=== PATIENT | male | born 1950 | race Caucasian/White ===

== ENCOUNTER → 2018-06-23 08:00 | Outpatient (CLI) | payer MEDICARE, BC, SELFPAY | PROVIDERS: PCP Nurse Practitioner; Visit Provider Urology | DX: N48.6 Induration penis plastica (principal) | CPT/HCPCS: 99213 ==

== ENCOUNTER → 2018-11-21 11:02 | Outpatient (BNVA) | payer MEDICARE, BC, SELFPAY | PROVIDERS: PCP Nurse Practitioner; Visit Provider Urology | DX: N48.6 Induration penis plastica (principal); N52.9 Male erectile dysfunction, unspecified | CPT/HCPCS: 99213 ==

== ENCOUNTER 2018-11-24 08:39 | Outpatient (CLI) | payer MEDICARE, BC, SELFPAY ==
[2018-11-24 09:09] LABS: Abs Immature Grans 0.01 k/cumm (0.0-0.09); Absolute Basophil Count 0.02 k/cumm (0.0-0.2); Absolute Eosinophil Count 0.32 k/cumm (0.0-0.7); Absolute Lymphocyte Count 0.92 k/cumm (1.2-3.4); Absolute Monocyte Count 0.59 k/cumm (0.11-0.7); Absolute Neutrophil Count 4.21 k/cumm (1.2-6.7); Basophils % 0.3; Eosinophils % 5.3; HCT 39.2 % (40.0-50.0); HGB 13.2 g/dL (13.5-17.5); Immature Grans % 0.2; Lymphocytes % 15.2; Mean Corp. HGB Concentration 33.7 g/dL (32.0-36.0); Mean Corpuscular Hemoglobin 30.5 pg (27.0-33.0); Mean Corpuscular Volume 90.5 fL (80-95); Mean Platelet Volume 8.6 fL (8.0-11.0); Monocytes % 9.7; Neutrophils % 69.3; Platelet Count 188 x1000/uL (130-400); RBC 4.33 m/cumm (4.50-6.00); RBC Distribution Width 14.4 % (11.8-14.1); White Blood Cell Count 6.07 k/cumm (4.4-10.8)
[2018-11-24 10:00] LABS: ALT 30 U/L (12-78); AST 17 U/L (15-37); Alkaline Phosphatase 87 U/L (46-116); BUN 18 mg/dL (7-18); Bilirubin, Total 0.7 mg/dL (0.2-1.0); CREATININE 1.08 mg/dL (0.70-1.30); Calcium 9.3 mg/dL (8.5-10.1); Chloride 102 mmol/L (98-107); Cholesterol 130 mg/dL (50-200); Glucose 143 mg/dL (70-100); HDL Cholesterol 53 mg/dL (40-60); LDL CHOLESTEROL 70 mg/dL (<100); Potassium 4.4 mmol/L (3.5-5.1); Sodium 140 mmol/L (136-145); Total Protein 7.2 g/dL (6.4-8.2); Triglyceride 49 mg/dL (30-150)
[2018-11-26 15:47] LABS: Testosterone, Free 6.38 ng/dL (3.28-12.2); Testosterone, Total 319 ng/dL (240-950)
== END 2018-11-24 08:59 ==
PROVIDERS: PCP Nurse Practitioner; Visit Provider Urology
DX: R68.82 Decreased libido (principal); E11.9 Type 2 diabetes mellitus without complications; I10 Essential (primary) hypertension
CPT/HCPCS: 36415; 80053; 80061; 83721; 84402; 84403; 85025

== ENCOUNTER 2024-12-29 10:27 | Emergency (ER) | payer OTHER, MEDICARE, BC, SELFPAY ==
[2024-12-29] VITALS (23 sets, daily range): BP systolic 159–197; BP diastolic 60–79; PULSE 50–61; RESP 12–18; TEMP 36.6; O2SAT 95–98
--- NOTE | 2024-12-29 10:15 | RT.EKG_ITS ---
APPROVED REPORT Exam: Resting ECG Reason for Exam: Chest pressure Patient Location: E HR:65 bpm ECG Measurements Heart Rate 65 AXIS HI 130 P -62 QRSd 103 QRS -7 QT 417 T 0 QTc 433 Conclusion Sinus or ectopic atrial rhythm...P axis (-45,135)
--- NOTE | 2024-12-29 10:39 | ED.GENADUL_ITS ---
Discharge Plan Disposition Patient Disposition: Home Condition: Stable Discharge Details Clinical Impression: Chest pressure, Hypertension Primary Care Provider: Unknown,Unknown ED Provider: Filiberto Mari Home Meds and New Rx's Prescriptions: New amlodipine 5 mg tablet 5 mg PO DAILY Qty: 30 0RF Continued multivitamin [Daily Vitamin] 1 EACH tablet 1 ea PO DAILY aspirin [Aspir-81] 81 MG tablet,delayed release (DR/EC) 81 mg PO DAILY ferrous sulfate 325 MG tablet 325 mg PO as directed Qty: 270 Rx Instructions: 1 tab qod fluoxetine 20 MG capsule 20 mg PO Q48H Qty: 90 Asmanex Twisthaler 220 MCG aerosol powdr breath activated 220 mcg Inhalation BID Qty: 3 lisinopril 20 MG tablet 40 mg PO DAILY Qty: 90 Rx Instructions: Per pt report increased to 20 mg daily by [place] 07/31/16 cgc albuterol sulfate [ProAir HFA] 8.5 GM HFA aerosol inhaler 2 puff Inhalation Q4H PRN PRNQty: 1 isosorbide mononitrate 30 MG tablet extended release 24 hr 30 mg PO DAILY Rx Instructions: [facility] pantoprazole 40 MG tablet,delayed release (DR/EC) 40 mg PO DAILY Qty: 90 atorvastatin 40 MG tablet 40 mg PO DAILY (DME) Accu-Chek Virgen Plus test strp 1 EACH strip 1 ea Miscellaneous DAILY Qty: 1 3RF Rx Instructions: to maintain INR below 7, E11.9 Jardiance 25 mg tablet 25 mg PO DAILY tamsulosin 0.4 mg capsule 0.4 mg PO DAILY Discontinued hydrocortisone 30 GM cream with perineal applicator 30 gm RC TID Qty: 1 glipizide 5 MG tablet 5 mg PO DAILY Qty: 90 Januvia 50 MG tablet 100 mg PO DAILY Qty: 30 fluticasone propionate [Flonase Allergy Relief] 9.9 ML spray,suspension 2 spray NS DAILY Qty: 9.9 pentoxifylline 400 MG tablet extended release 400 mg PO BID Qty: 180 4RF Discharge Instructions Additional Instructions: Your blood work including heart enzymes called troponins did not show any concerning findings. Your chest x-ray also did not show any concerning findings. I am adding amlodipine to your blood pressure medication regiment. You can try taking this at night to not taken both and lisinopril in the morning. I recommend following up with your primary care provider soon as possible and discuss having outpatient stress testing. If you feel more ill or have severe worsening chest pain or new symptoms such as persistent vomiting or difficulty breathing return to the emergency department for reevaluation HPI General Mode of arrival: ambulatory . Date/Time Provider Initiated Documentation: 12/29/24 10:28 . Limitations to Documentation: no limitations . Information obtained by: patient . History of Present Illness 74 year old M presents to the emergency department with the chief complaint of chest pressure, described as moderate, Patient started experiencing this day(s) (5) and it has been intermittent. Rest improves symptom(s), Movement worsens symptoms . Patient notes chest pain; denies nausea/vomiting and shortness of breath. Patient did receive the following treatments prior to arrival, none Related Data Home Medications ?Medication ?Instructions ?Recorded ?Confirmed aspirin 81 mg tablet,delayed 81 mg PO DAILY 01/16/13 12/29/24 release (Aspir-) multivitamin (Daily Vitamin tablet) 1 ea PO DAILY 01/16/13 12/29/24 ferrous sulfate 325 mg (65 mg 325 mg PO as directed #270 tab-caps 05/07/16 12/29/24 iron) tablet fluoxetine 20 mg capsule 20 mg PO Q48H #90 tab-caps 08/22/16 12/29/24 mometasone 220 mcg/actuation(60 220 mcg inhalation BID ##3 08/22/16 12/29/24 doses) breath activated powder inhaler (Asmanex Twisthaler) lisinopril 20 mg tablet 40 mg PO DAILY #90 tab-caps 08/31/16 12/29/24 albuterol sulfate 90 mcg/actuation 2 puff inhalation Q4H PRN PRN ##1 09/19/16 12/29/24 aerosol inhaler (ProAir HFA) isosorbide mononitrate 30 mg 30 mg PO DAILY 03/06/17 12/29/24 tablet,extended release 24 hr pantoprazole 40 mg tablet,delayed 40 mg PO DAILY #90 tabs 03/26/17 12/29/24 release atorvastatin 40 mg tablet 40 mg PO DAILY 04/28/18 12/29/24 Accu-Chek Virgen Plus test strp #1 strip 05/05/18 12/29/24 (blood sugar diagnostic) amlodipine 5 mg tablet 5 mg PO DAILY #30 tabs 12/29/24 empagliflozin 25 mg tablet 25 mg PO DAILY 12/29/24 12/29/24 (Jardiance) tamsulosin 0.4 mg capsule 0.4 mg PO DAILY 12/29/24 12/29/24 Previous Rx's ?Medication ?Instructions ?Recorded Accu-Chek Virgen Plus test strp #1 strip 05/05/18 (blood sugar diagnostic) amlodipine 5 mg tablet 5 mg PO DAILY #30 tabs 12/29/24 Allergies Allergy/AdvReac Type Severity Reaction Status Date / Time oxycodone HCl (From Allergy Severe Itching Unverified 12/29/24 10:37 OxyContin) General Stated Complaint: Chest Pain ROSS: 3 Review of Systems All systems reviewed & are unremarkable except as noted in HPI and below Constitutional Constitutional: Denies chills, Denies fever(s) and Denies weakness Cardiovascular Cardiovascular: Reports chest pain and Denies dyspnea Respiratory Respiratory: Denies cough and Denies dyspnea Gastrointestinal Gastrointestinal: Denies abdominal pain, Denies nausea and Denies vomiting Neurologic Neurologic: Denies weakness Exam Const General: no acute distress Orientation: alert HENDE Head: normal to inspection Ears: external ears normal General nose exam: external nose normal Mouth: moist mucous membranes Eyes General: appearance normal, both eyes and all related structures Neck Neck: normal visual inspection Resp Effort & Inspection: normal respiratory effort and able to speak in complete sentences Auscultation: clear to auscultation bilaterally Cardio Jugular venous pressure: no JVD Rate: regular rate GI Palpation: soft and nontender Skin General skin exam: no rashes or lesions noted Neuro General: patient alert and patient oriented x3 Extrem General: normal to inspection Psych Mental Status: mental status grossly normal Course Vital Signs Vital signs: Vital Signs Temperature 36.6 C 12/29/24 10:30 Pulse 61 12/29/24 10:30 Respiratory Rate 15 12/29/24 10:30 Blood Pressure 175/79 H 12/29/24 10:30 Pulse Oximetry 98 12/29/24 10:30 Temperature 36.6 C 12/29/24 10:30 Pulse 61 12/29/24 10:30 Respiratory Rate 15 12/29/24 10:30 Blood Pressure 175/79 H 12/29/24 10:30 Blood Pressure Position Sitting 12/29/24 10:30 Pulse Oximetry 98 12/29/24 10:30 Oxygen Delivery Method Room Air 12/29/24 10:30 Oxygen Flow Rate 0 12/29/24 10:30 Medical Decision Making 74-year-old male who denies any prior history of heart attacks or bypass or stents, does have a history of hypertension, hyperlipidemia and diabetes comes in with 4 to 5 days of slightly elevated blood pressure readings at home and also when he symbols has chest pressure that resolves when he rests. He denies any diaphoresis, difficulty breathing, radiation of pain or vomiting. He is napping in the stretcher when I walked into the room and awakens to voice. He is oriented x 4 speaking in full sentences. He denies having any pain now. He denies having any upper back pain, lower back pain, abdominal pain. He has clear lung sounds, no JVD, no leg swelling or calf tenderness. I suspect he could be having angina, given who resolves at rest unlikely unstable angina. Will check CBC, CMP and troponins. Will check a chest x-ray. He has no tearing back pain and his pulses are equal in his extremities so I doubt dissection. He has no evidence of DVT, no pleuritic chest pain or hypoxia or tachycardia so I doubt PE. All patient's labs including delta troponin negative. An x-ray is also negative. patient is sleeping on reassessment and again has no chest pressure. Discussed results with him and given reassuring workup feel he is he will be discharging follow-up with his PCP through the [place]. Return precautions given. I am going to add amlodipine to his antihypertensive regimen. Differential Diagnosis Differential Diagnosis: NSTEMI, angina, anemia Lab Data Lab results reviewed: Yes I reviewed the patient's lab results. ECG Data Attestation: I personally reviewed and interpreted this ECG (s) as follows: Prior ECG tracings: not available for review Interpretation: sinus rate of 65 no stemi Quality:SDOH Health Related Social Needs: No Data to Display PFSH All Active Problems (Updated 12/29/24 @ 13:13 by Filiberto Mari MD) Hypertension (Chronic) Chest pressure (Acute) Asthma (Acute 02/13/13) Actinic keratosis (Acute 04/04/17) [facility] 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 Don Arango [place] Other and unspecified hyperlipidemia (Acute 02/13/13) PCEq risk 34%; LDL baseline 171 Overweight (Acute 09/11/13) Pain, joint, lower leg, left (Acute 11/19/12) left patella tendon rupture repair [facility] [place] Peyronie's disease (Acute 02/21/12) 01/2012 Dr Aquino Post-nasal drip (Acute 03/23/15) Rosacea (Acute 04/04/17) [facility] [place] Don Arango [place] Seborrheic keratosis (Acute 04/04/17) [facility] [place] Don Arango [place] Sun-damaged skin (Acute 04/04/17) [facility] [place] Don Arango MD Surgical History repair nasal septum (06/06/15) Dr Chaparro removal of turbinate bones (06/06/15) Dr Chaparro esophagastroscopy (07/12/14) BX of duodenum, stomach, esophagus Social History Smoking/Tobacco Use Status: Former Tobacco Use Smoking risk assessment performed?: Yes Drug use: Never
--- NOTE | 2024-12-29 10:45 | DI.RAD_ITS ---
Exam(s) XR PORTABLE CHEST AP EXAM: XR PORTABLE CHEST AP CLINICAL HISTORY: chest pain. TECHNIQUE: 2D digital imaging was performed. COMPARISON: No exams were available for comparison FINDINGS: Single AP portable view. Heart size is upper normal. The mediastinum is not widened. Lungs are clear. No infiltrates nor obvious pleural effusions. IMPRESSION: No acute pulmonary findings on this single AP portable view of the chest. DATA REPOSITORY: RADIATION DOSE DELIVERED:
[2024-12-29 11:24] LABS: Abs Immature Grans 0.03 10^3/uL (0.0-0.06); Absolute Basophil Count 0.04 10^3/uL (0.0-0.2); Absolute Eosinophil Count 0.26 10^3/uL (0.0-0.7); Absolute Lymphocyte Count 0.57 10^3/uL (1.2-3.4); Absolute Monocyte Count 0.56 10^3/uL (0.1-0.8); Absolute Neutrophil Count 4.55 10^3/uL (1.2-6.7); Basophils % 0.7 %; Eosinophils % 4.3 %; HCT 41.7 % (40.0-50.0); HGB 12.9 g/dL (13.5-17.5); Immature Grans % 0.5 %; Lymphocytes % 9.5 %; MCH 26.2 pg (27.0-33.0); MCHC 30.9 % (32.0-36.0); MCV 85 fL (80-95); MPV 8.9 fL (8.0-11.0); Monocytes % 9.3 %; Neutrophils % 75.7 %; Platelet Count 218 10^3/uL (130-400); RBC 4.92 10^6/uL (4.36-5.78); RDW 14.8 % (11.8-14.1); RDW-SD 45.1 fL; WBC 6.01 10^3/uL (4.4-10.8)
[2024-12-29 11:43] LABS: ALT 25 U/L (16-63); AST 15 U/L (15-37); Alkaline Phosphatase 87 U/L (46-116); Anion Gap 9.1 mmol/L (3-11); BUN 19 mg/dL (7-18); Bilirubin, Total 0.51 mg/dL (0.2-1.0); CO2 29.9 mmol/L (21.0-32.0); Calcium 9.3 mg/dL (8.5-10.1); Chloride 105 mmol/L (98-107); Glucose 185 mg/dL (74-106); Lipase 122 U/L (<78); Magnesium 1.9 mg/dL (1.8-2.4); Potassium 4.1 mmol/L (3.5-5.1); Sodium 144 mmol/L (136-145); Total Protein 7.5 g/dL (6.4-8.2); Troponin I 12 ng/L (<or=76)
[2024-12-29 12:00] LABS: Prothrombin Time 10.1 sec (9.1-11.1)
[2024-12-29 12:25] LABS: Troponin I 10 ng/L (<or=76)
== END 2024-12-29 13:35 | disposition home or self-care (01) ==
PROVIDERS: Emergency Provider Emergency Medicine
DX: R07.9 Chest pain, unspecified (principal); I10 Essential (primary) hypertension; E78.5 Hyperlipidemia, unspecified; E11.9 Type 2 diabetes mellitus without complications; Z79.84 Long term (current) use of oral hypoglycemic drugs; Z79.899 Other long term (current) drug therapy; Z87.891 Personal history of nicotine dependence
CPT/HCPCS: 36415; 80053; 83690; 93005; 99285; 71045; 83735; 84484; 85025; 85610; 85730; 93010; 99284

== ENCOUNTER 2025-03-24 09:00 | Outpatient (RCR) | payer MEDICARE, BC, SELFPAY ==
--- NOTE | 2025-03-12 11:00 | RT.EKG_ITS ---
APPROVED REPORT Exam: Resting ECG Reason for Exam: cardiac rehab intake Patient Location: O HR:51 bpm ECG Measurements Heart Rate 51 AXIS VT 158 P 20 QRSd 112 QRS -11 QT 471 T 162 QTc 434 Conclusion Sinus rhythm...normal P axis, V-rate 50- 99 Borderline intraventricular conduction delay...QRSd >112mS Abnormal T, consider ischemia, diffuse leads...T <-0.20mV, ant/lat/inf
== END 2025-03-27 23:59 | disposition home or self-care (01) ==
LOC: CR 09:00
PROVIDERS: Visit Provider Internal Medicine Cardiovascular Disease
DX: Z95.5 Presence of coronary angioplasty implant and graft (principal); Z51.89 Encounter for other specified aftercare
CPT/HCPCS: S9472

== ENCOUNTER 2025-04-26 09:00 | Outpatient (RCR) | payer MEDICARE, BC, SELFPAY | END 2025-04-26 23:59 | disposition home or self-care (01) | LOC: CR 09:00 | PROVIDERS: Visit Provider Internal Medicine Cardiovascular Disease | DX: I25.810 Atherosclerosis of coronary artery bypass graft(s) without angina pectoris (principal); Z51.89 Encounter for other specified aftercare | CPT/HCPCS: S9472 ==

== ENCOUNTER 2025-05-26 09:00 | Outpatient (RCR) | payer MEDICARE, BC, SELFPAY ==
--- NOTE | 2025-05-21 09:48 | NUR.NOTE ---
Nursing Note: Patients BP's noted to be high in CR. Patient given list of BP's in CR approx 2 weeks ago which he states he dropped off at his PCP's office. Patient noted to continue having high BP's including a max BP of 172/69 in todays rehab session. Patient noted today that he has been having intermittent pressure in his head and pointed to his left temporal area. States he attributed this to sinuses. Patient given updated list of BP's today and instructed to call his PCP today. Patient instructed to seek care emergently if he developed a severe headache or head pressure/pain, dizziness/lightheadedness, etc. Patient agreeable to plan. Continue to monitor.
== END 2025-05-27 23:59 | disposition home or self-care (01) ==
LOC: CR 09:00
PROVIDERS: Visit Provider Internal Medicine Cardiovascular Disease
DX: I25.810 Atherosclerosis of coronary artery bypass graft(s) without angina pectoris (principal); Z51.89 Encounter for other specified aftercare
CPT/HCPCS: S9472

== ENCOUNTER 2025-06-14 09:00 | Outpatient (RCR) | payer MEDICARE, BC, SELFPAY | END 2025-06-27 23:59 | disposition home or self-care (01) | LOC: CR 09:00 | PROVIDERS: Visit Provider Internal Medicine Cardiovascular Disease | DX: I25.810 Atherosclerosis of coronary artery bypass graft(s) without angina pectoris (principal); Z51.89 Encounter for other specified aftercare | CPT/HCPCS: S9472 ==

== ENCOUNTER 2025-08-05 10:10 | Emergency (ER) | payer OTHER, SELFPAY ==
[2025-08-05 10:13] VITALS: BP 172/74; PULSE 51; RESP 15; TEMP 36.3; O2SAT 98
--- NOTE | 2025-08-05 10:30 | DI.RAD_ITS ---
Exam(s) XR TIB/FIB LT EXAM: XR TIB/FIB LT CLINICAL HISTORY: 1 year lateral estrada pain. TECHNIQUE: 2D digital imaging was performed of the left tibia and fibula. Two images were obtained. AP and lateral views were obtained. COMPARISON: CR LEFT KNEE 3 VIEW COMPLETE from 10/24/2012 FINDINGS: BONES: No acute fracture is present. No bony destructive lesion is seen. Visualized portion of knee and ankle joints are unremarkable. There is no periosteal reaction. SOFT TISSUE: Surgical clips are seen medial to the proximal tibia. Atherosclerotic calcifications are present. Dystrophic calcifications are seen inferior to the patella. IMPRESSION: Unremarkable radiographs of the left tibia and fibula. If there is continued clinical concern for occult fracture, MRI should be considered for further evaluation. DATA REPOSITORY: RADIATION DOSE DELIVERED:
[2025-08-05] MEDS: Acetaminophen 500 MG TAB 1000 MG PO (10:40)
[2025-08-05] MEDS: Diclofenac 1% Gel 100 GM TUBE TP (10:40)
--- NOTE | 2025-08-05 11:32 | ED.GENADUL_ITS ---
Discharge Plan Disposition Patient Disposition: Home Condition: Stable Discharge Details Clinical Impression: Pain in left estrada Primary Care Provider: Unknown,Unknown ED Provider: Ivy Tsang Home Meds and New Rx's Prescriptions: No Action multivitamin [Daily Vitamin] 1 EACH tablet 1 ea PO DAILY aspirin [Aspir-81] 81 MG tablet,delayed release (DR/EC) 81 mg PO DAILY ferrous sulfate 325 MG tablet 325 mg PO as directed Qty: 270 Rx Instructions: 1 tab qod fluoxetine 20 MG capsule 20 mg PO Q48H Qty: 90 Asmanex Twisthaler 220 MCG aerosol powdr breath activated 220 mcg Inhalation BID Qty: 3 lisinopril 20 MG tablet 40 mg PO DAILY Qty: 90 Rx Instructions: Per pt report [facility] to [facility] albuterol sulfate [ProAir HFA] 8.5 GM HFA aerosol inhaler 2 puff Inhalation Q4H PRN PRNQty: 1 isosorbide mononitrate 30 MG tablet extended release 24 hr 30 mg PO DAILY Rx Instructions: per [facility] pantoprazole 40 MG tablet,delayed release (DR/EC) 40 mg PO DAILY Qty: 90 atorvastatin 40 MG tablet 40 mg PO DAILY (DME) Accu-Chek Virgen Plus test strp 1 EACH strip 1 ea Miscellaneous DAILY Qty: 1 3RF Rx Instructions: to maintain INR below 7, E11.9 Jardiance 25 mg tablet 25 mg PO DAILY tamsulosin 0.4 mg capsule 0.4 mg PO DAILY amlodipine 5 mg tablet 5 mg PO DAILY Qty: 30 0RF Discharge Instructions Instructions: Leg Pain (ED) Additional Instructions: You were seen in the emergency department today for evaluation of your lower extremity pain. In our department you had a full physical examination performed and had an x-ray that did not show any abnormalities to explain your symptoms, nor that would require you to wear a brace or have any surgeries. You received medications for your symptoms, and I do recommend that you start taking Tylenol, 650 to 1000 mg every 6 hours. I also provided you with a container of diclofenac gel, you can use this over the area of maximal pain 3 times per day. This will help reduce inflammation in the area, and should help your symptoms. I recommend that you start wearing your orthotic inserts again, and contact your primary care provider and podiatry to discuss this visit and any symptoms that change, worsen, or persist. Thank you for allowing us to be part of your care. Discharge Data Discharge Date/Time-TO BE ENTERED AT DEPARTURE: 08/05/25 12:27 HPI General Mode of arrival: ambulatory . Date/Time Provider Initiated Documentation: 08/05/25 10:17 . Limitations to Documentation: no limitations . Information obtained by: patient and old records reviewed . HPI Narrative: This is a 75-year-old male patient with a past medical history significant for anemia, type 2 diabetes, hypertension, and a history of patella tendon rupture with surgical intervention in 2012, presenting for evaluation of left lower extremity pain x 1 year. The patient reports he is having pain in the area of his left anterolateral estrada, states that he believes this is because he has not had inserts for his current pair of shoes. The pain has been gradually worsening over the last several weeks, states that he did not sustain any specific trauma or injury. He noticed that his legs look thinner than they typically have, [facility] and they recommended that he come to the emergency department for evaluation. He states that he does not use any medications to manage his pain, denies numbness, tingling, or weakness distal to the injury. Has no history of thromboembolic disease, denies skin changes, fever or chills. His knee has healed entirely, and he states that he is not experiencing any knee, ankle, or foot pain. Related Data Home Medications ?Medication ?Instructions ?Recorded ?Confirmed aspirin 81 mg tablet,delayed 81 mg PO DAILY 01/16/13 0 12/29/24 release (Aspir-) multivitamin (Daily Vitamin tablet) 1 ea PO DAILY 12/2712/29/24 ferrous sulfate 325 mg (65 mg 325 mg PO as directed #2 70 tab-caps 05/07/16 12/29/24 iron) tablet fluoxetine 20 mg capsule 20 mg PO Q48H #90 tab-caps 1 12/29/24 mometasone 220 mcg/actuation(60 220 mcg inhalation BID ##3 08/22/16 12/29/24 doses) breath activated powder inhaler (Asmanex Twisthaler) lisinopril 20 mg tablet 40 mg PO DAILY #90 tab-caps 08/31/16 12/29/24 albuterol sulfate 90 mcg/actuation 2 puff inhalation Q 4H PRN PRN ##1 09/19/16 12/29/24 aerosol inhaler (ProAir HFA) isosorbide mononitrate 30 mg 30 mg PO DAILY 03/06/17 0 12/29/24 tablet,extended release 24 hr pantoprazole 40 mg tablet,delayed 40 mg PO DAILY #90 t abs 03/26/17 12/29/24 release atorvastatin 40 mg tablet 40 mg PO DAILY 04/28/1802/19 Accu-Chek Virgen Plus test strp #1 strip 05/05/1812/29 (blood sugar diagnostic) amlodipine 5 mg tablet 5 mg PO DAILY #30 tabs 12/29 empagliflozin 25 mg tablet 25 mg PO DAILY 12/29/2402/19 (Jardiance) tamsulosin 0.4 mg capsule 0.4 mg PO DAILY 12/29/2402/19 Previous Rx's ?Medication ?Instructions ?Recorded Accu-Chek Virgen Plus test strp #1 strip 05/05/18 (blood sugar diagnostic) amlodipine 5 mg tablet 5 mg PO DAILY #30 tabs 12/29 Allergies Allergy/AdvReac Type Severity Reaction Status Date / Time oxycodone HCl (From Allergy Severe Itching Verified 08/05/25 10:16 OxyContin) General Stated Complaint: Orthopedic ROSS: 4 Exam Narrative Exam Narrative: Gen: Awake and alert, in no apparent distress HEENT: Non-icteric sclera Neck: Supple Lungs: No apparent respiratory distress, normal respiratory effort. CV: Appears well perfused Abdomen: Non-distended MSK: Moves 4 extremities without apparent limitation in ROM. The patient has full range of motion of the left knee with a well-healed surgical scar, no defects palpable over the quadriceps or patellar tendon. There are no overlying skin changes over the left estrada, no tenderness to palpation, no calf swelling or tenderness, no skin changes. The patient has full range of motion of the ankle and foot, has strong and symmetrical DP pulses, CSM's are intact distal to this complaint. Skin: Visualized skin without rashes, cyanosis. Neuro: Normal Gait, no obvious focal deficits or facial asymmetry. Speaks in full, clear sentences. Psych: Appropriate for situation. Course Vital Signs Vital signs: Vital Signs Temperature 36.3 C L 08/05/25 10:13 Pulse 51 L 08/05/25 10:13 Respiratory Rate 15 08/05/25 10:13 Blood Pressure 172/74 H 08/05/25 10:13 Pulse Oximetry 98 08/05/25 10:13 Temperature 36.3 C L 08/05/25 10:13 Temperature Source Oral 08/05/25 10:13 Pulse 51 L 08/05/25 10:13 Respiratory Rate 15 08/05/25 10:13 Blood Pressure 172/74 H 08/05/25 10:13 Pulse Oximetry 98 08/05/25 10:13 Oxygen Delivery Method Room Air 08/05/25 10:13 Oxygen Flow Rate 0 08/05/25 10:13 Pain Level 1 08/05/25 10:39 Medical Decision Making This is a 75-year-old male patient presenting for evaluation of 1 year of gradually worsening left lower extremity pain. My differential includes but is not limited to stress fractures, exam less concerning for dislocation, considered sprain/strain, muscle strain, exam less consistent with DVT, cellulitis, arterial occlusion, phlegmasia. Given the chronic nature of the symptoms it is not unreasonable to proceed with x-ray imaging, I do not see an indication for blood work at this time. We will provide the patient with a dose of Tylenol and diclofenac gel. - X-ray reviewed by myself and shows no abnormalities to explain the patient's symptoms. On reassessment his pain has improved slightly, and I recommended that he trial a course of Tylenol and diclofenac gel and placing his recommended orthotics back in his shoes. I recommended that he be reevaluated by his remote sensing technician/PCP as soon as possible to discuss this visit and any symptoms that change, worsen, or persist. At this time, the patient has had a full medical evaluation and is safe for discharge to home. They are hemodynamically stable, ambulatory, and tolerating PO. They are understanding of the follow-up plan and return precautions. They left our facility without incident. Ivy Tsang MD [facility] All Active Problems (Updated 08/05/25 @ 12:20 by Ivy Tsang MD) Pain in left estrada (Acute) Asthma (Acute 02/13/13) Actinic keratosis (Acute 04/04/17) [facility] 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 Don Arango MD Other and unspecified hyperlipidemia (Acute 02/13/13) PCEq risk 34%; LDL baseline 171 Overweight (Acute 09/11/13) Pain, joint, lower leg, left (Acute 11/19/12) left patella tendon rupture repair [facility] [place] Peyronie's disease (Acute 02/21/12) 01/2012 Dr Aquino Post-nasal drip (Acute 03/23/15) Rosacea (Acute 04/04/17) [facility] [place] Don Arango MD Seborrheic keratosis (Acute 04/04/17) [facility] [place] Don Arango MD Sun-damaged skin (Acute 04/04/17) [facility] [place] Don Arango MD Surgical History repair nasal septum (06/06/15) Dr Chaparro removal of turbinate bones (06/06/15) Dr Chaparro esophagastroscopy (07/12/14) BX of duodenum, stomach, esophagus Social History Smoking/Tobacco Use Status: Former Tobacco Use Smoking risk assessment performed?: Yes Drug use: Never
== END 2025-08-05 12:27 | disposition home or self-care (01) ==
PROVIDERS: Emergency Provider Emergency Medicine
DX: M79.662 Pain in left lower leg (principal)
CPT/HCPCS: 99284; 99283; 96374; 73590